=== PATIENT | female | born 1980 | race Caucasian/White ===

== ENCOUNTER 2022-03-31 02:14 | Day surgery (SDC) | payer OTHER, SELFPAY ==
[2022-03-21 17:00] VITALS: BMI 29.7
--- NOTE | 2022-03-21 17:15 | PC.NURSE ---
Report to the Outpatient Waiting Room, entrance under the green pavilion located off [facility], at time _0630_ on date 03/31/22. Planned Procedure Time: 0830. Time changes happen often and if your time is changed the preop area will call you the afternoon before. - You and your visitor will be asked to self-screen and do not enter if you have any COVID symptoms. - Only one visitor is requested with a max of two and NO children visitors are allowed at this time. - The patient visitor may be requested to leave or wait in car when not with patient due to distancing restrictions. - A mask is optional within the hospital. Patients may have clear liquids (water, carbonated beverages, clear teas, apple juice) until 3 hours prior to surgery with a maximum of 20 ounces. - No food from midnight until time of surgery - Infants may have breast milk until 4 hours before surgery, infant formula 6 hours prior to surgery. - Children will be allowed to drink immediately following surgery. If applicable, please bring a bottle or sippy cup to assist with drinking. Juice, water, soda, and popsicles are readily available. For infants on formula, please bring formula the day of surgery. Pacifiers are allowed. Take the following medications with a SIP of water the morning of surgery: inhalers_ Medications to discontinue per physician Date to take last dose Please no make-up, nail estonian, hairspray, perfume, deodorant, or body powder the day of surgery. No jewelry (including any body piercings) or valuables the day of surgery, leave them at home. Please take a shower or bath the night before, or the morning of, surgery with an antibacterial soap. Wear comfortable, loose fitting clothing. Children are encouraged to wear pajamas. - Jewelry must be removed prior to entering the operating room. Rings and piercings that are not removed may be cut off. - The hospital will not accept responsibility for valuables. - Please leave all valuables, including medications, at home the day of surgery. If you are going home after surgery, a licensed racing driver must drive you home. - NO public transportation without another adult if you receive anesthesia. - We recommend that an adult stay with you for 24 hours following discharge. - We also recommend that you do not drive, make important decision, drink alcoholic beverages, or take any drugs that were not prescribed by your health care provider for at least 24 hours after your discharge time. For Pediatric surgeries, we recommend two adults accompany the child home. Follow any additional instructions given to you from your surgeon. If you or anyone in your household have experienced Covid symptoms in the past week, please notify your surgeon or the nurse liaison at the phone number below for possible testing. Telephone instructions given to _Genesis Morse_and asked if any additional questions and then verbalized understanding. Patient advised to call surgeon office or pre surgery nurse liaison [phone] if any additional questions.
--- NOTE | 2022-03-30 11:38 | P.PNAN_ITS ---
Anes - Initial Pre Proc Eval Procedure: Operation Date: 03/31/22 08:30 Proposed Procedures p Hysteroscopy, Dilation and Curettage with Kaitlynn Endometrial Ablation - Severiano Jorge MD Date/Time: 03/30/22 11:38 Surgeon: Severiano Jorge MD Pre Op Diagnosis: Irrg Periods Patient Data Age: 41 Gender: F Height: 1.7 m Weight: 86 kg Allergies Allergy/AdvReac Type Severity Reaction Status Date / Time No Known Allergies Allergy Verified 03/31/22 06:46 Home Medications Medication Instructions Recorded Confirmed Type albuterol sulfate 90 mcg/actuation 2 inhalation inhalation Q6H PRN 02/27/19 03/21/22 History breath activated powder inhaler shortness of breath mometasone 100 mcg/actuation HFA 1 inhalation inhalation ONCE 02/27/19 03/21/22 History aerosol inhaler (Asmanex HFA) drospirenone 3 mg-ethinyl 1 tablet PO DAILY #84 tabs 10/25/21 03/21/22 Rx estradiol 0.02 mg tablet (HAYDEN (28)) Patient hx anesthesia problems: none Family hx anesthesia problems: none Results Review: All pre-operative results and documents have been reviewed as part of the pre- operative evaluation. [facility] Past Medical History Medical History Angiomyolipoma of right kidney Asthma Dizziness Ectopic , tubal Ectopic , tubal (05/14/13) left salpingectomy Fatigue Scoliosis Screening mammogram, encounter for Suture granuloma bilateral / endometrisois Surgical History Surgical History (Updated 03/30/22 @ 11:38 by Sylvester Burris DO) History of colposcopy History of tubal ligation Previous section (05/09/17) primary c/s Twins Family History Family History Mother Hypertension Father Family history of type 2 diabetes mellitus Hypertension Depression CAD (coronary artery disease) Brother Hypertension Hyperlipidemia Social History Social History Smoking status: Never smoker Alcohol intake: current Substance use: never Substance use type: does not use Living arrangements: with family Additional living arrangements comments: 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 Gender identity (if verbalized by the patient): Female Sexual Orientation (if Verbalized by the Patient): Straight or Heterosexual Spiritual care concerns: No Anes - Eval Final PreProcedure Day of Procedure 03/30/22 11:38 Patient weight: overweight Heart: regular rate and rhythm Lungs: clear to auscultation Airway: Mallampati scale class II Neurological: alert and oriented Last oral intake: >/= 8 hours ASA classification: II Emergent: no Anesthetic plan: proceed Anesthesia type and monitoring: general GIVS and standard monitoring Results Review: All pre-operative results and documents have been reviewed as part of the pre- operative evaluation. Informed Consent: The patient's anesthetic plan and its attendant risks and benefits were discussed with the patient/family/POA. Questions were solicited and answers provided to the satisfaction of the patient/family/POA.
[2022-03-31] MEDS: ACETAMINOPHEN 500 MG TABLET 1000 MG PO (06:51)
--- NOTE | 2022-03-31 07:14 | WPDHPUPDATE1 ---
History and Physical Update Update Date/Time: 03/31/22 07:14 Proceed with hysteroscopy/D&C/Endometrial ablation History and Physical has been reviewed, including an updated exam of the patient. There are NO changes in the patient's condition. Risks, benefits, and alternatives have been discussed and questions answered. Patient agrees to proceed with procedure.
[2022-03-31 07:22] VITALS: BP 133/84; PULSE 67; RESP 16; TEMP 36.7; O2SAT 100
[2022-03-31] MEDS: LACTATED RINGERS 1,000 ML 30 ML IV CONT (07:25)
[2022-03-31] MEDS: ceFAZolin 2 GM/D5W 50 ML 2 GM/50 ML BAG IVPB (08:30)
--- NOTE | 2022-03-31 08:56 | P.OP_ITS ---
Procedure Note - Detailed Date of Procedure 03/31/22 Pre-op Diagnosis 1. Irregular vaginal bleeding Post-op Diagnosis Same Procedure Performed 1. Hysteroscopy with uterine curettings 2. Endometrial ablation Surgeon Severiano Jorge MD Anesthesia MAC Findings Slightly thickened endometrial cavity, otherwise no abnormalities noted Description of Procedure Patient prepped draped usual manner for this procedure. Cervix was dilated to allow the hysteroscope to be placed which did reveal slightly thickened tissue but no specific fibroids or polyps were appreciated. Curetting of the endometrial tissue was then performed. Endometrial ablation as was placed, ca vity assessment was performed, and instrument was activated. At the end of the cycle hysteroscopic exam revealed thorough destruction throughout. At this point the procedure was considered terminated the patient was sent to recovery room in stable condition. Estimated Blood Loss 50 Drains No Packing No Pathology Yes Complications No immediate complications Condition Stable Disposition PACU [facility] Billing Surgery - Charge Forward: Surgery Billing
[2022-03-31 09:03] VITALS: BP 131/87; PULSE 77; RESP 14; O2SAT 100
[2022-03-31] MEDS: oxyCODONE HCL (*CRX) 5 MG TAB IR PO (09:24)
[2022-03-31 09:30] VITALS: BP 135/84; PULSE 62; RESP 14
[2022-03-31 09:50] VITALS: BP 127/74; PULSE 59; RESP 16
[2022-03-31 10:05] VITALS: BP 137/79; PULSE 58; RESP 16
== END 2022-03-31 10:11 | disposition home or self-care (01) ==
PROVIDERS: Visit Provider Obstetrics & Gynecology
PROC: 0U5B8ZZ Destruction of Endometrium, Via Natural or Artificial Opening Endoscopic (ICD-10-PCS; CPT 58563; principal; 2022-03-31 08:30)
DX: N92.6 Irregular menstruation, unspecified (principal); N80.9 Endometriosis, unspecified; F10.90 Alcohol use, unspecified, uncomplicated; E66.3 Overweight; Z68.30 Body mass index [BMI] 30.0-30.9, adult; Z79.51 Long term (current) use of inhaled steroids; Z79.899 Other long term (current) drug therapy
CPT/HCPCS: 58563; 88305; A9270; J0690; J2250; J2704; J3010; J7030; J7120